=== PATIENT | male | born 1980 | race Caucasian/White ===

== ENCOUNTER 2023-07-11 17:13 | Emergency (ER) | payer OTHER, SELFPAY ==
--- NOTE | ~2023-07-11 | CT_ITS ---
EXAMINATION: CT abdomen pelvis w con DATE: 07/11/2023 20:14 INDICATION: Abdominal pain. TECHNIQUE: Computed tomography (CT) of the abdomen and pelvis was performed with 100 mL Omnipaque-350 intravenous contrast. Automated exposure control and iterative reconstruction technique were employe d. The dose-length product was 234.31 mGy-cm. COMPARISON: None FINDINGS: Mild emphysema at the lung bases. Heart size is normal. No pericardial or pleural effusion. Atrophic left hepatic lobe. Gallbladder, spleen, pancreas, bilateral kidneys and right adrenal gland are kuldip l. 1.6 cm indeterminate left adrenal nodule. Bowels including the appendix are normal. Bladder is nor mal. There is calcified atherosclerosis of the aorta and many of the other arteries. No free intraper itoneal gas or fluid. No pathologically enlarged abdominal or pelvic lymphadenopathy. Mild thoracolum bar dextrocurvature with mild spondylosis. IMPRESSION: 1. No acute intra-abdominal/pelvic process. 2. Indeterminate 1.6 cm left adrenal mass. Recommend correlation with any prior outside imaging. If n o imaging is available would recommend further evaluation with pre and postcontrast MRI or CT either on a nonemergent short interval If there is history of prior malignancy or in one year if there is no history of prior malignancy. Reviewed, dictated and finalized at location A. IMPRESSION: 1. No acute intra-abdominal/pelvic process. 2. Indeterminate 1.6 cm left adrenal mass. Recommend correlation with any prior outside imaging. If no imaging is available would recommend further evaluation with pre and postcontrast MRI or CT either on a nonemergent short interval If there is history of prior malignancy or in one year if there is no history of p rior malignancy.
[2023-07-11 17:15] VITALS: BP 151/97; PULSE 85; RESP 16; TEMP 36.8; O2SAT 100
[2023-07-11 17:35] LABS: Basophils Absolute Auto 0.1 K/mm3 (0.0-0.1); Basophils Percent Auto 1.5 % (0.2-1.2); Eosinophils Absolute Auto 0.2 K/mm3 (0-0.3); Eosinophils Percent Auto 2.3 % (0-4.4); Hematocrit 50.9 % (42.0-52.0); Hemoglobin 17.8 g/dL (14.0-18.0); Immature Granulocyte Absolute 0.02 K/mm3 (0.00-0.031); Immature Granulocyte Percent A 0.3 % (0-0.5); Lymphocytes Absolute Auto 2.83 K/mm3 (0.9-3.2); Lymphocytes Percent Auto 35.7 % (18.3-44.2); Mean Corpuscular Hemoglobin 29.1 pg (26-34); Mean Corpuscular Volume 83.2 fl (80-100); Mean Platelet Volume 8.6 fl (7.4-10.4); Monocytes Absolute Auto 0.7 K/mm3 (0.1-0.6); Monocytes Percent Auto 8.2 % (2.6-8.5); Neutrophils Absolute Auto 4.1 K/mm3 (1.3-6.7); Platelet Count Result 385 k/mm3 (150-375); Red Blood Count 6.12 M/mm3 (4.6-6.20); Red Cell Distribution Width 12.7 % (11.5-14.5); White Blood Count 7.9 K/mm3 (4.5-10.0)
[2023-07-11 17:38] LABS: Appearance Urine Turbid (Clear); Bacteria Urine None Seen /hpf; Bilirubin Urine Negative (Negative); Blood Urine Negative (Negative); Color Urine Yellow (Yellow); Glucose Urine UA Negative (Negative); Ketones Urine Negative (Negative); Leukocyte Esterase Ur 1+ LEU/UL (Negative); Nitrate Urine Negative (Negative); Non Pathogenic Casts 0-2; Protein Urine Negative (Negative); RBC Urine 0-2 /hpf (0-2); Specific Grav Ur 1.008 (1.001-1.035); Squamous Epithelial Cell Urine None seen /hpf (Few); pH Urine 6.5 (5.0-9.0)
[2023-07-11 17:46] LABS: Add Urine Microscopic? YES
[2023-07-11 17:47] LABS: Alanine Aminotransferase 16 U/L (6-50); Albumin Level 4.7 g/dL (3.5-5.1); Alkaline Phosphatase 114 U/L (38-126); Anion Gap 6 mmol/L (8-16); Aspartate Amino Transferase 21 U/L (17-59); Bilirubin,Total 1.1 mg/dL (0.2-1.3); Blood Urea Nitrogen 6 mg/dL (9-20); Calcium 9.4 mg/dL (8.4-10.2); Carbon Dioxide 29 mmol/L (22-30); Chloride 101 mmol/L (98-107); Estimated CRCL calculation 85 ml/min; Estimated Glomerular Filt Rate > 60; Glucose 105 mg/dL (65-110); Lipase 39 U/L (23-300); Potassium 3.8 mmol/L (3.4-5.0); Sodium 136 mmol/L (137-145)
[2023-07-11 19:28] VITALS: BP 162/92; PULSE 80; RESP 13; TEMP 36.5; O2SAT 100
--- NOTE | 2023-07-11 19:37 | ED.ABDPAIN ---
HPI - Abdominal Pain General Chief Complaint: Abdominal Pain Stated Complaint: abd pain Time Seen by Provider: 07/11/23 19:31 History of Present Illness HPI narrative: Patient is a 43-year-old male who presents to the emergency department to this afternoon complaining of epigastric pain. Patient states that he has had similar symptoms this past spring and underwent evaluation at an outside facility and was told that he had something in his pancreas, however, he was not sure if it was pancreatitis or something else. Patient admits that he does have a history of drinking alcohol, states that he quit for 2 years and recently started drinking again, approximately drinks 3 days a week. He denies any other history of abdominal issues. Patient admits to feeling nauseous and gassy but denies any vomiting episodes. He also denies any chest pain, shortness of breath, dysuria, hematuria, constipation, diarrhea, melena, hematochezia, fevers or chills. He also denies any headaches, dizziness, lightheadedness, blurry visions, focal weakness, numbness and or tingling. There are no other modifying, alleviating, or precipitating factors at this time. Related Data Allergies Allergy/AdvReac Type Severity Reaction Status Date / Time Penicillins Allergy Rash Verified 07/11/23 19:28 Review of Systems Review of Systems: All systems are reviewed and are negative unless stated otherwise in the HPI. Exam Narrative: General: Alert, awake, afebrile, in no acute distress. HEENT: PERRL, no rhinorrhea, no post nasal drip, oropharynx clear. Neck: Trachea midline, no JVD, no lymphadenopathy. Cardiovascular: Regular rate and rhythm, no murmurs, rubs or gallops, no peripheral edema. Respiratory: Clear to auscultation bilaterally, no tachypnea, no wheezing, no rhonchi, no rubs, no respiratory distress. Abdomen: Soft, nontender, mild distention, no rebound, no guarding, no peritoneal signs. Musculoskeletal: No joint swelling or deformity, normal muscle tone. Skin: No rashes or petechia, no signs of infection. Psychiatric: Alert and oriented, normal behavior and judgment for situation. Neurological: Alert and oriented to person, place, and time. Follows all commands. No focal deficits, speech is clear and fluent. Course Vital Signs Vital signs: Vital Signs Temperature 98.3 F 07/11/23 17:15 Pulse Rate 85 07/11/23 17:15 Respiratory Rate 16 07/11/23 17:15 Blood Pressure 151/97 H 07/11/23 17:15 Pulse Oximetry 100 07/11/23 17:15 Temperature 97.7 F 07/11/23 19:28 Pulse Rate 84 07/11/23 20:40 Respiratory Rate 20 07/11/23 20:40 Blood Pressure 123/95 H 07/11/23 20:40 Pulse Oximetry 99 07/11/23 20:40 MDM - Abdominal Pain MDM Narrative Medical decision making narrative: The patient was evaluated by myself in the emergency department. History is obtained from patient who is an independent historian and physical exam was performed. External medical records were reviewed at this time. IV was established and pertinent tests were ordered. Patient was administered 4 mg of IV Zofran for nausea. Laboratory results obtained revealing no acute process. Imaging studies obtained included CT abdomen and pelvis with IV contrast which was independently interpreted by me revealing a 1.6 cm left adrenal mass, otherwise no acute process. Patient was informed of this finding and provided with a printout of his CT report. Differential diagnosis considerations include acute pancreatitis, gastritis, and GERD. I have evaluated and discussed social determinants of health with the patient that could potentially impact subsequent diagnosis and treatment plans. On repeat assessment of the patient, reevaluation revealed that the patient is doing well and is in no acute distress. Patient symptoms have improved since he arrived to our emergency department. Repeat vital signs were all reviewed and noted to be stable. Differential diagnosis
[2023-07-11 20:40] VITALS: BP 123/95; PULSE 84; RESP 20; O2SAT 99
[2023-07-11] MEDS: ONDANSETRON INJ 4 MG/2 ML VIAL IV PUSH (20:53)
[2023-07-11 21:29] VITALS: BP 138/95; PULSE 80; RESP 20; TEMP 36.6; O2SAT 100
== END 2023-07-11 21:30 | disposition home or self-care (01) ==
PROVIDERS: Emergency Medicine; Emergency Provider Emergency Medicine
DX: R10.13 Epigastric pain (principal); E27.8 Other specified disorders of adrenal gland
CPT/HCPCS: 36415; 74177; 80053; 81001; 83690; 85025; 87086; 96374; 99284; J2405; Q9967

== ENCOUNTER 2023-10-08 23:54 | Emergency (ER) | payer MEDICAID, SELFPAY ==
--- NOTE | ~2023-10-08 | CT_ITS ---
CT of the Abdomen and Pelvis: Indication: Abdominal pain Technique: 2.5 mm axial scans were obtained through the abdomen and pelvis following intravenous adm inistration of 100 cc of Omnipaque 350. Dose reduction technique was used on this scan by utilizing a utomated exposure control and iterative reconstruction technique. The dose-length product (DLP) was 2 48.63 mGy-cm. COMPARISON: 07/11/2023 Findings: Scans through the lung bases are unremarkable. The liver, spleen, pancreas, gallbladder, right adrenal gland, and kidneys are within normal limits. Stable 1.7 cm left adrenal nodule, indeterminate by Hounsfield units. There are atherosclerotic calci fications of the aorta. No lymphadenopathy. No bowel obstruction or bowel wall thickening. There is no evidence to suggest acute appendicitis. Images through the pelvis were performed. Urinary bladder unremarkable. No pelvic mass seen. No ascit es. Impression: No acute abnormality. Stable 1.7 cm left adrenal nodule, which remains indeterminate. Consider follow-up MR to attempt to c onfirm adenoma. Reviewed, dictated and finalized at location . 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 Stable 1.7 cm left adrenal nodule, which remains indeterminate. Consider follow -up MR to attempt to confirm adenoma.
[2023-10-09 00:07] VITALS: BP 130/71; PULSE 117; RESP 16; TEMP 37.4; O2SAT 99
[2023-10-09 00:26] LABS: Basophils Absolute Auto 0.1 K/mm3 (0.0-0.1); Basophils Percent Auto 0.3 % (0.2-1.2); Eosinophils Percent Auto 0.2 % (0-4.4); Hematocrit 44.6 % (42.0-52.0); Hemoglobin 15.5 g/dL (14.0-18.0); Immature Granulocyte Absolute 0.08 K/mm3 (0.00-0.031); Immature Granulocyte Percent A 0.5 % (0-0.5); Lymphocytes Absolute Auto 1.47 K/mm3 (0.9-3.2); Lymphocytes Percent Auto 9.5 % (18.3-44.2); Mean Corpuscular HGB Conc 34.8 g/dl (32-36); Mean Corpuscular Hemoglobin 28.4 pg (26-34); Mean Corpuscular Volume 81.8 fl (80-100); Mean Platelet Volume 9.8 fl (7.4-10.4); Monocytes Absolute Auto 0.9 K/mm3 (0.1-0.6); Monocytes Percent Auto 5.5 % (2.6-8.5); Platelet Count Result 437 k/mm3 (150-375); Red Blood Count 5.45 M/mm3 (4.6-6.20); White Blood Count 15.5 K/mm3 (4.5-10.0)
[2023-10-09 00:32] LABS: Alanine Aminotransferase 18 U/L (6-50); Albumin Level 4.3 g/dL (3.5-5.1); Alkaline Phosphatase 133 U/L (38-126); Anion Gap 17 mmol/L (8-16); Aspartate Amino Transferase 28 U/L (17-59); Bilirubin,Total 1.9 mg/dL (0.2-1.3); Blood Urea Nitrogen 14 mg/dL (9-20); Calcium 9.3 mg/dL (8.4-10.2); Carbon Dioxide 18 mmol/L (22-30); Chloride 101 mmol/L (98-107); Estimated Glomerular Filt Rate > 60; Glucose 82 mg/dL (65-110); Lipase 36 U/L (23-300); Sodium 136 mmol/L (137-145)
[2023-10-09 01:11] LABS: Appearance Urine Clear (Clear); Bacteria Urine None Seen /hpf; Bilirubin Urine Negative (Negative); Blood Urine Negative (Negative); Color Urine Yellow (Yellow); Glucose Urine UA Negative (Negative); Ketones Urine 4+ mg/dL (Negative); Leukocyte Esterase Ur 1+ LEU/UL (Negative); Nitrate Urine Negative (Negative); Non Pathogenic Casts 0-2; Protein Urine Negative (Negative); RBC Urine 0-2 /hpf (0-2); Specific Grav Ur 1.013 (1.001-1.035); Squamous Epithelial Cell Urine None seen /hpf (Few); pH Urine 5.5 (5.0-9.0)
[2023-10-09 01:30] LABS: Add Urine Microscopic? YES
[2023-10-09 03:34] VITALS: BP 129/96; PULSE 94; RESP 15; TEMP 36.6; O2SAT 99
--- NOTE | 2023-10-09 04:11 | ED.ABDPAIN ---
HPI - Abdominal Pain General Chief Complaint: Abdominal Pain Stated Complaint: L flank pain Time Seen by Provider: 10/09/23 03:11 History of Present Illness HPI narrative: patient is 43-year-old male presenting with flank and abdominal pain. States that he had to walk approximately 10 miles today. Since that time he has had bilateral leg and lower back pain. He states that it is right flank pain. States that it did radiate to his abdomen earlier. He was nauseated earlier but this has resolved following Zofran and some food. He denies chest pain or shortness of breath. No fevers, vomiting, diarrhea, dysuria, rashes, leg swelling. Related Data Allergies Allergy/AdvReac Type Severity Reaction Status Date / Time Penicillins Allergy Rash Verified 10/09/23 00:43 Review of Systems Review of Systems: All systems reviewed & are unremarkable except as noted in HPI and below Exam Narrative: GENERAL: Nontoxic, no acute distress HEAD: Normocephalic, atraumatic. EYES: PERRLA and EOMI. ENT: Mucous membranes moist. NECK: Supple. BACK: no midline back tenderness CHEST: Clear to auscultation. No respiratory distress. HEART: Regular rate and rhythm. No murmur heard. Normal peripheral pulses. ABDOMEN: Soft, +RUQ tenderness w/o guarding or rebound; no CVA tenderness EXTREMITIES: Normal range of motion. No edema. SKIN: Warm, dry, no rash. NEURO: No focal deficits. Alert and oriented x3. PSYCH: Normal mood and affect. Course Vital Signs Vital signs: Vital Signs Temperature 99.4 F 10/09/23 00:07 Pulse Rate 117 H 10/09/23 00:07 Respiratory Rate 16 10/09/23 00:07 Blood Pressure 130/71 10/09/23 00:07 Pulse Oximetry 99 10/09/23 00:07 Oxygen Delivery Room Air 10/09/23 00:07 Temperature 98 F 10/09/23 03:34 Pulse Rate 96 10/09/23 05:38 Respiratory Rate 15 10/09/23 05:38 Blood Pressure 123/63 10/09/23 05:38 Pulse Oximetry 98 10/09/23 05:38 Oxygen Delivery Room Air 10/09/23 00:07 MDM - Abdominal Pain MDM Narrative Medical decision making narrative: 43-year-old male presenting with right-sided abdominal and flank pain. Vitals are stable. Exam remarkable for the above. blood work with leukocytosis. Normal lipase, normal renal function, normal CK. UA with 11-20 wbc's, patient denies any urinary complaints. CT abdomen pelvis with a stable adrenal mass. No other acute abnormalities. Patient is sleeping comfortably on re-evaluation. Feel that he is safe for outpatient management. Will provide new PCP and advised that he follow-up closely regarding this adrenal mass. Appropriate return precautions given. Discharged in stable condition. Differential Diagnosis Differential diagnosis: Likely abdominal pain, diverticulitis, gastroenteritis and pancreatitis Medical Records Attestation: I reviewed the patient's medical records. Lab Data Attestation: I reviewed the patient's lab results. 10/09/23 00:02 10/09/23 00:02 Labs: Lab Results 10/09/23 10/09/23 10/09/23 Range/Units 00:02 01:00 06:32 WBC 15.5 H (4.5-10.0) K/mm3 RBC 5.45 (4.6-6.20) M/mm3 Hgb 15.5 (14.0-18.0) g/dL Hct 44.6 (42.0-52.0) % MCV 81.8 (80-100) fl MCH 28.4 (26-34) pg MCHC 34.8 (32-36) g/dl RDW 12.0 (11.5-14.5) % Plt Count 437 H (150-375) k/mm3 MPV 9.8 (7.4-10.4) fl Immature Gran % (Auto) 0.5 (0-0.5) % Neut % (Auto) 84.0 H (45.5-73.1) % Lymph % (Auto) 9.5 L (18.3-44.2) % [place] % (Auto) 5.5 (2.6-8.5) % Eos % (Auto) 0.2 (0-4.4) % Baso % (Auto) 0.3 (0.2-1.2) % Lymph # (Auto) 1.47 (0.9-3.2) K/mm3 [place] # (Auto) 0.9 H (0.1-0.6) K/mm3 Eos # (Auto) 0.0 (0-0.3) K/mm3 Baso # (Auto) 0.1 (0.0-0.1) K/mm3 Abs Immat Gran (auto) 0.08 H (0.00-0.031) K/mm3 Absolute Neuts (auto) 13.0 H (1.3-6.7) K/mm3 Absolute Nucleated RBC 0.0 (0.0-0.012) K/mm3 Nucleated RBC % 0.0 (0.0-0.2) % Sod
[2023-10-09 05:38] VITALS: BP 123/63; PULSE 96; RESP 15; O2SAT 98
[2023-10-09] MEDS: KETOROLAC 30 MG/ML VIAL (*BKC) IV PUSH (06:05)
[2023-10-09] MEDS: SODIUM CHLORIDE 0.9% IV 1,000 ML 999 ML IV CONT (06:05)
[2023-10-09 07:02] LABS: Creatine Kinase 130 U/L (55-170)
[2023-10-09 07:25] VITALS: BP 110/66; PULSE 98; RESP 16; O2SAT 98
== END 2023-10-09 07:25 | disposition home or self-care (01) ==
PROVIDERS: Emergency Provider Emergency Medicine
DX: R10.9 Unspecified abdominal pain (principal); E27.8 Other specified disorders of adrenal gland
CPT/HCPCS: 36415; 74177; 80053; 81001; 82550; 83690; 85025; 87086; 96361; 96374; 99284; J1885; J7030; Q9967

== ENCOUNTER 2023-10-16 07:19 | Outpatient (CLI) | payer MEDICAID, SELFPAY ==
--- NOTE | ~2023-10-16 | US_ITS ---
Limited Abdominal Sonogram: Real-time sonographic imaging of the right upper quadrant was performed. Clinical History: Abnormal lab work Findings: The liver appears normal with no evidence of mass lesion or bile duct dilatation. Main por clement vein demonstrates normal direction of flow. The gallbladder is well distended, and appears normal with no evidence of gallstone or wall thickening. The common bile duct measures 2 mm. The visualize d pancreas, aorta, and IVC are unremarkable. Impression: No significant abnormality seen. 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
--- NOTE | ~2023-10-16 | XR_ITS ---
Clinical Indication: Cough PA and lateral views of the chest: Comparison: None Findings: The lungs are clear, without evidence of focal consolidation or pleural effusion. Cardiome diastinal silhouette is within normal limits. Bones and soft tissues are unremarkable. Impression: Normal chest. Reviewed, dictated and finalized at location . 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
== END 2023-10-16 07:20 | disposition home or self-care (01) ==
PROVIDERS: PCP Emergency Medicine; Visit Provider Emergency Medicine
DX: D72.829 Elevated white blood cell count, unspecified (principal)
CPT/HCPCS: 71046; 76705